=== PATIENT | male | born 1940 | race Caucasian/White ===

== ENCOUNTER 2021-10-12 10:01 | Outpatient (CLI) | payer MEDICARE, SELFPAY ==
--- NOTE | 2021-10-12 10:06 | USCV_ITS ---
Pawel Harrison Age: 81 Gender: M : 1940 Exam Date: 10/12/2021 10:12 Ordering Phys: Brenna Michaud MD ([email or web address]) Technologist: Exam Location[place] [facility] [place]: RT SIDE ICA OCCULSION LT SIDE ENART Risk Factors: Previous Vascular Surgery: Right Brachial BP: / Left Brachial BP: / Right Left Velocity (cm/s) Spectral Plaque Velocity (cm/s) Spectral Plaque Syst/Diast Broadening Syst/Diast Broadening 55.10/ 6.60 Prox CCA 93.50 / 9.00 63.90/ 8.80 Mid CCA 143.30/ 22.60 / Distal CCA 144.80/ 25.60 Hetro / Prox ICA 249.80/ 28.90 Hetro / Mid ICA 186.70/ 21.00 Hetro / Distal ICA 176.20/ 50.00 182.50 ECA 308.80 ICA/CCA 1.73 Antegrade Vertebral Antegrade 81.40/ 16.60 cm/s 115.7/ 23.70 cm/s 0 Tri Subclavian Tri 123.7 157.8 0 0 FINDINGS Comparison:. 06/08/19. Chronic occlusion right ICA. Mild increase in velocity and ICA/CCA ratio on the left. Mild turbulence and increased diastolic velocity. Mild intimal thickening and plaque in the bifurcations. Antegrade vertebral arteries. Mild tto moderate stenosis left ECA. CONCLUSIONS Left ICA stenosis 50-69%. Mild progression of stenosis since 2019. Recommend CTA for further characterization. Chronic right ICA occlusion. Dr. Richa Cuba DO (Electronically Signed) Final Date: 12 October 2021 11:27 S
== END 2021-10-12 10:02 | disposition home or self-care (01) ==
PROVIDERS: PCP Nurse Practitioner Family; Visit Provider Internal Medicine Cardiovascular Disease
DX: I65.23 Occlusion and stenosis of bilateral carotid arteries (principal)
CPT/HCPCS: 93880

== ENCOUNTER 2022-08-27 11:20 | Outpatient (CLI) | payer MEDICARE, SELFPAY ==
--- NOTE | 2022-08-27 12:00 | USCV_ITS ---
Pawel Harrison Age: 81 Gender: M : 1940 Exam Date: 08/27/2022 11:41 Ordering Phys: Brenna Michaud MD ([email or web address]) Technologist: CT Exam Location: [facility] – [place] Indication: Stenosis Risk Factors: Previous Vascular Surgery: Right Brachial BP: / Left Brachial BP: / Right Left Velocity (cm/s) Spectral Plaque Velocity (cm/s) Spectral Plaque Syst/Diast Broadening Syst/Diast Broadening 75.00/ 9.60 Prox CCA 145.80/ 28.20 54.40/ 8.90 Mid CCA 14.00 / 92.20 62.60/ 9.70 Distal CCA 81.20 / 20.00 / Prox ICA 165.50/ 23.00 / Mid ICA 156.30/ 27.60 / Distal ICA 118.00/ 39.80 208.60 ECA 307.40 ICA/CCA 1.13 Vertebral / cm/s 71.10/ 26.00 cm/s Subclavian 158.4 156.3 0 0 CONCLUSIONS Right ICA occlusion Left ICA stenosis 50-69%. Velocities decreased compared to 09/2021. Moderate atheromatous plaque left carotid bulb/ICA. Poor flow right vertebral artery new from previous.. Normal antegrade Doppler flow noted in the left vertebral artery. Christopher Richter MD (Electronically Signed) Final Date: 27 August 2022 17:27 S
== END 2022-08-27 11:21 | disposition home or self-care (01) ==
PROVIDERS: PCP Nurse Practitioner Family; Visit Provider Internal Medicine Cardiovascular Disease
DX: I65.23 Occlusion and stenosis of bilateral carotid arteries (principal)
CPT/HCPCS: 93880

== ENCOUNTER → 2022-10-14 11:22 | Outpatient (BNVA) | payer MEDICARE, SELFPAY | PROVIDERS: PCP Nurse Practitioner Family; Visit Provider Nurse Practitioner Family | DX: I65.21 Occlusion and stenosis of right carotid artery (principal); I10 Essential (primary) hypertension; F17.210 Nicotine dependence, cigarettes, uncomplicated | CPT/HCPCS: 99214 ==

== ENCOUNTER 2022-10-31 14:06 | Outpatient (CLI) | payer MEDICARE, SELFPAY ==
[2022-10-31] MEDS: iohexol 350 mg/mL 500 mL Btl (per mL) IV (14:28)
--- NOTE | 2022-10-31 14:30 | CT_ITS ---
WS: [id number] CT ANGIOGRAM CAROTID ARTERIES HISTORY: right ICA occlusion, left ICA 50-69%, progression TECHNIQUE: CT angiogram is performed of the carotid arteries. During arterial injection imaging is ob tained from the skull base to the aortic arch in 1.25 mm imaging. Coronal and sagittal reformats are submitted, MIP imaging also reviewed. Additional multiplanar reformats of the carotid arteries are ortiz bmitted. NASCET criteria utilized. All CT scans at [facility] use at least one of these dose optimization techniques: automated exposure control; mA and/or kV adjustment per patient size (includ es targeted exams where dose is matched to clinical indication); or iterative reconstruction. CONTRAST: Omnipaque 350; 100 mL IV. DLP: 277.64 mGy.cm COMPARISON: 06/10/2018, carotid ultrasound 08/27/2022 Right carotid: Common carotid artery: Atherosclerotic plaque with intimal thickening in the innominate artery. There is severe intimal thickening and plaque. The lumen is moderately narrowed. Origin RIGHT carotid mabel ry is intact. Internal carotid artery: Mild RIGHT ICA occluded proximally. External carotid artery: Patent. Left carotid: Common carotid artery: Mild scattered plaque. There is diffuse circumferential wall thickening. Internal carotid artery: Mild stenosis. No high-grade stenosis. External carotid artery: Patent. Right vertebral artery: No flow in the RIGHT vertebral artery. Small amount of flow is reidentified n ear C2 transverse foramina. Very small caliber distal RIGHT vertebral artery. Left vertebral artery: Dominant and patent. Subclavian arteries: Moderate atherosclerotic plaque. Irregular wall thickening. Upper thorax: Atherosclerotic plaque thoracic aortic arch. Thyroid gland: Normal. Osseous structures: Degenerative spondylitic changes. Skull base: Clear. Mucoperiosteal thickening in the maxillary and ethmoid air cells. CT/CT angio neck [id number] IMPRESSION: 1. Complete occlusion, RIGHT ICA. Known occlusion. 2. Just less than 50% stenosis LEFT ICA. 3. There is significant circumferential wall thickening involving the visualiz ed thoracic aorta and great vessels. 4. Occluded RIGHT vertebral artery. Occluded RIGHT vertebral artery to the lev el of C2. Very small caliber distal RIGHT vertebral artery.
[2022-10-31 15:00] LABS: Blood Urea Nitrogen 9 mg/dL (8-23)
== END 2022-10-31 14:07 | disposition home or self-care (01) ==
PROVIDERS: PCP Nurse Practitioner Family; Visit Provider Nurse Practitioner Family
DX: I65.23 Occlusion and stenosis of bilateral carotid arteries (principal)
CPT/HCPCS: 70498; 82565; 84520; Q9967

== ENCOUNTER → 2023-04-14 13:58 | Outpatient (BNVA) | payer MEDICARE, SELFPAY | PROVIDERS: PCP Nurse Practitioner Family; Visit Provider Internal Medicine Cardiovascular Disease | DX: I10 Essential (primary) hypertension (principal); R06.00 Dyspnea, unspecified; I65.21 Occlusion and stenosis of right carotid artery; F17.210 Nicotine dependence, cigarettes, uncomplicated | CPT/HCPCS: 99214 ==

== ENCOUNTER 2023-09-29 11:30 | Outpatient (CLI) | payer MEDICARE, SELFPAY ==
--- NOTE | 2023-09-29 11:45 | USCV_ITS ---
Pawel Harrison Age: 83 Gender: M : 1940 Exam Date: 09/29/2023 11:47 Ordering Phys: Brenna Michaud MD ([email or web address]) Technologist: CT [place]am [place] [facility] [place]ication: Stenosis Risk Factors: Previous Vascular Surgery: Right Brachial BP: / Left Brachial BP: / Right Left Velocity (cm/s) Spectral Plaque Velocity (cm/s) Spectral Plaque Syst/Diast Broadening Syst/Diast Broadening 77.80/ 10.30 Prox CCA 109.70/ 19.50 60.80/ 2.70 Mid CCA 91.90 / 26.60 56.90/ 0.00 Distal CCA 81.00 / 17.90 / Prox ICA 140.60/ 27.10 / Mid ICA 158.70/ 40.90 / Distal ICA 146.60/ 50.80 173.30 ECA 166.20 Occluded Vertebral Antegrade / cm/s 69.30/ 15.40 cm/s Tri Subclavian Tri 225.6 125.0 0 0 FINDINGS Comparison:. 08/27/22 Known occluded right ICA. Mild elevation of velocity left ICA and plaque. No progression since the prior exam. Non visualized right vertebral artery. CONCLUSIONS Left ICA stenosis 50-69%. No progression of stenosis. Complete occlusion right ICA. Dr. Richa Cuba DO (Electronically Signed) Final Date: 29 September 2023 14:05 S
== END 2023-09-29 11:31 | disposition home or self-care (01) ==
LOC: RAD 11:30
PROVIDERS: PCP Nurse Practitioner Family; Visit Provider Internal Medicine Cardiovascular Disease
DX: I65.21 Occlusion and stenosis of right carotid artery (principal)
CPT/HCPCS: 93880

== ENCOUNTER → 2023-10-28 10:39 | Outpatient (BNVA) | payer MEDICARE, SELFPAY | PROVIDERS: PCP Nurse Practitioner Family; Visit Provider Nurse Practitioner Family | DX: I10 Essential (primary) hypertension (principal); I65.21 Occlusion and stenosis of right carotid artery; F17.210 Nicotine dependence, cigarettes, uncomplicated | CPT/HCPCS: 99214 ==

== ENCOUNTER 2024-04-28 16:35 | Outpatient (CLI) | payer MEDICARE, SELFPAY | END 2024-04-28 16:36 | disposition home or self-care (01) | LOC: RAD 05-03 07:04 | PROVIDERS: PCP Nurse Practitioner Family; Visit Provider Internal Medicine Cardiovascular Disease | DX: I65.21 Occlusion and stenosis of right carotid artery (principal); I10 Essential (primary) hypertension; I73.9 Peripheral vascular disease, unspecified; E78.5 Hyperlipidemia, unspecified; Z86.73 Personal history of transient ischemic attack (TIA), and cerebral infarction without residual deficits; R06.09 Other forms of dyspnea; F17.210 Nicotine dependence, cigarettes, uncomplicated | CPT/HCPCS: 99214 ==

== ENCOUNTER 2024-09-30 10:54 | Outpatient (CLI) | payer MEDICARE, SELFPAY ==
--- NOTE | 2024-09-30 11:15 | USCV_ITS ---
Harrison Armas Age: 84 Gender: M : 1940 Exam Date: 09/30/2024 10:43 Ordering Phys: Roshni Gómez MD ([email or web address]) Technologist: USR Exam Location: [facility] – [place] Indication: occlusion lt side endarterectomy Risk Factors: Previous Vascular Surgery: Right Brachial BP: / Left Brachial BP: / Right Left Velocity (cm/s) Spectral Plaque Velocity (cm/s) Spectral Plaque Syst/Diast Broadening Syst/Diast Broadening 75.40/ 9.20 Prox CCA 126.40/ 21.50 52.70/ 10.70 Mid CCA 115.70/ 18.00 65.50/ 13.00 Distal CCA 85.90 / 13.60 / Prox ICA 83.80 / 17.80 / Mid ICA 115.80/ 31.80 / Distal ICA 77.00 / 14.70 147.20 ECA 258.80 ICA/CCA 1.00 Occluded Vertebral Antegrade / cm/s 83.90/ 19.70 cm/s Tri Subclavian Tri 195.7 241.7 0 0 FINDINGS rt side ICA and vert occulsion comp 2023 CONCLUSIONS Chronic RIGHT ICA occlusion Occluded RIGHT vertebral artery Left ICA stenosis <50%. Interval LEFT CEA Intimal thickening in the common carotid arteries and internal carotid arteries bilaterally. Normal antegrade Doppler flow noted in the left vertebral artery. Christopher Richter MD (Electronically Signed) Final Date: 30 September 2024 13:41 S
== END 2024-09-30 10:55 | disposition home or self-care (01) ==
LOC: RAD 10:54
PROVIDERS: PCP Nurse Practitioner Family; Visit Provider Internal Medicine Cardiovascular Disease
DX: I65.23 Occlusion and stenosis of bilateral carotid arteries (principal); R93.89 Abnormal findings on diagnostic imaging of other specified body structures
CPT/HCPCS: 93880

== ENCOUNTER → 2024-12-06 13:30 | Outpatient (BNVA) | payer MEDICARE, SELFPAY | PROVIDERS: PCP Nurse Practitioner Family; Visit Provider Internal Medicine Cardiovascular Disease | DX: I65.21 Occlusion and stenosis of right carotid artery (principal); I10 Essential (primary) hypertension; I73.9 Peripheral vascular disease, unspecified; I45.10 Unspecified right bundle-branch block; E78.5 Hyperlipidemia, unspecified; R06.09 Other forms of dyspnea; Z86.73 Personal history of transient ischemic attack (TIA), and cerebral infarction without residual deficits; F17.210 Nicotine dependence, cigarettes, uncomplicated | CPT/HCPCS: 99214 ==

== ENCOUNTER → 2025-07-26 10:18 | Outpatient (BNVA) | payer MEDICARE, SELFPAY | PROVIDERS: PCP Nurse Practitioner Family; Visit Provider Nurse Practitioner Family | DX: I65.23 Occlusion and stenosis of bilateral carotid arteries (principal); Z86.73 Personal history of transient ischemic attack (TIA), and cerebral infarction without residual deficits; I10 Essential (primary) hypertension; R07.89 Other chest pain; F17.210 Nicotine dependence, cigarettes, uncomplicated | CPT/HCPCS: 99214 ==

== ENCOUNTER 2025-08-01 09:40 | Outpatient (CLI) | payer MEDICARE, SELFPAY ==
--- NOTE | 2025-08-01 10:00 | USCV_ITS ---
ArmasHarrison hernandez Age: 84 Gender: M : 1940 Exam Date: 08/01/2025 10:06 Ordering Phys: Dionna Thompson Technologist: Exam Location: [facility] – [place], [place] Indication: RIGHT ICA occlusion Risk Factors: Previous Vascular Surgery: Right Brachial BP: / Left Brachial BP: / Right Left Velocity (cm/s) Spectral Plaque Velocity (cm/s) Spectral Plaque Syst/Diast Broadening Syst/Diast Broadening 47.40/ 6.20 Prox CCA 115.50/ 14.30 47.80/ 7.90 Mid CCA 178.10/ 23.10 56.10/ 7.50 Distal CCA 114.90/ 19.60 131.30/12.70 Prox ICA 101.40/ 17.50 91.90/ 9.50 Mid ICA 117.60/ 29.20 30.20/ 0.00 Distal ICA 137.70/ 34.30 81.70 ECA 169.60 2.30 ICA/CCA 1.20 Occluded Vertebral Antegrade / cm/s 92.80/ 22.70 cm/s Tri Subclavian Tri 173.2 212.3 0 0 FINDINGS RIGHT ICA OCCLUDED FROM MID RIGHT ICA, RIGHT VERT OCCLUDED CONCLUSIONS Right ICA occulded form mid to distal unchanged Left ICA stenosis <50%. Left CEA Intimal thickening in the common carotid arteries and internal carotid arteries bilaterally. Normal antegrade Doppler flow noted in the left vertebral artery. Right vertebral artery is occluded Christopher Richter MD (Electronically Signed) Final Date: 01 August 2025 14:29 S
== END 2025-08-01 09:41 | disposition home or self-care (01) ==
LOC: RAD 09:44
PROVIDERS: PCP Nurse Practitioner Family; Visit Provider Nurse Practitioner Family
DX: I65.21 Occlusion and stenosis of right carotid artery (principal); Z86.73 Personal history of transient ischemic attack (TIA), and cerebral infarction without residual deficits
CPT/HCPCS: 93880